=== PATIENT | male | born 1990 | race Caucasian/White ===

== ENCOUNTER 2021-08-16 15:07 | Inpatient (IN) | payer OTHER ==
[2021-08-16] MEDS ORDERED: ONDANSETRON *ODT* 4 MG TABLET SL PRN (16:08)
[2021-08-16] MEDS ORDERED: BISMUTH SUBSALICYLATE 524 MG/30 ML PO PRN (16:08)
[2021-08-16] MEDS ORDERED: MENTHOL/PHENOL 1 EACH UD MM PRN (16:08)
[2021-08-16] MEDS ORDERED: ACETAMINOPHEN 325 MG TABLET (FP) PO PRN ×2 (16:08)
[2021-08-16] MEDS ORDERED: IBUPROFEN 400 MG TABLET (FP) PO PRN (16:08)
[2021-08-16] MEDS ORDERED: MAGNESIUM CITRATE 300 ML BOTTLE PO PRN (16:08)
[2021-08-16] MEDS ORDERED: MAGNESIUM HYDROX 2400MG/30ML ORAL SUSPENSION 30 ML CUP PO PRN (16:08)
[2021-08-16] MEDS ORDERED: methaDONE HCL 10 MG TABLET (FOR DETOX USE ONLY) PO ONE (16:08)
[2021-08-16] MEDS ORDERED: MAG HYDROX/AL HYDROX/SIMETH 30 ML UNIT-DOSE CUP PO PRN (16:08)
[2021-08-16] MEDS ORDERED: cloNIDine HCL 0.1 MG TABLET PO PRN (16:08)
[2021-08-16 17:16] VITALS: BMI 24.3
[2021-08-16] MEDS: LORazepam 2 MG TABLET PO SCH ×2 (19:21→22:23)
[2021-08-16] MEDS: hydrOXYzine PAMOATE 25 MG CAPSULE (FP) PO SCH ×2 (19:22→22:24)
[2021-08-16] MEDS: NICOTINE 10 MG CARTRIDGE (INHALER) IH PRN (19:28)
[2021-08-16] MEDS: THIAMINE HCL 100 MG TABLET (FP) PO SCH (22:24)
[2021-08-16] MEDS: MELATONIN 5 MG TABLETS PO SCH (22:24)
[2021-08-17] MEDS: hydrOXYzine PAMOATE 25 MG CAPSULE (FP) PO SCH ×5 (05:38→22:28)
[2021-08-17] MEDS: LORazepam 2 MG TABLET PO SCH ×4 (05:38→22:27)
[2021-08-17] MEDS ORDERED: methaDONE HCL 10 MG TABLET (FOR DETOX USE ONLY) ONE (08:45)
[2021-08-17] MEDS: PRENATAL VITAMINS W/ FOLIC ACID TABLET (FP) PO SCH (10:18)
[2021-08-17 10:31] LABS: HEMATOCRIT 39.5 % (35.4-49); HEMOGLOBIN 13.2 GM/dL (11.7-16.9); MCH 30.9 pg (25.7-33.7); MCHC 33.4 g/dl (32.0-35.9); MEAN CELL VOLUME 92.3 fl (80-96); MEAN PLT VOLUME 7.7 fl (7.5-11.1); PLATELET COUNT 272 10^3/uL (134-434); RBC 4.28 M/mm3 (4.00-5.60); RDW 12.8 % (11.9-15.9); WHITE BLOOD COUNT 6.1 K/mm3 (4.0-10.0)
[2021-08-17 10:36] LABS: ALBUMIN 3.2 g/dl (3.4-5.0); CALCIUM 8.9 mg/dL (8.5-10.1)
[2021-08-17 10:37] LABS: BLOOD UREA NITROGEN 9.1 mg/dL (7-18)
[2021-08-17 10:41] LABS: BILIRUBIN,TOTAL 0.3 mg/dL (0.2-1)
[2021-08-17 10:42] LABS: CREATININE 0.9 mg/dL (0.55-1.3)
[2021-08-17 10:44] LABS: TOT PROT 6.2 g/dl (6.4-8.2)
[2021-08-17] MEDS: LORazepam 1 MG TABLET PO PRN ×2 (13:34→19:22)
[2021-08-17] MEDS: NICOTINE 10 MG CARTRIDGE (INHALER) IH PRN (17:38)
[2021-08-17] MEDS: THIAMINE HCL 100 MG TABLET (FP) PO SCH (22:28)
[2021-08-17] MEDS: MELATONIN 5 MG TABLETS PO SCH (22:28)
[2021-08-18] MEDS: LORazepam 1 MG TABLET PO SCH ×4 (05:51→22:09)
[2021-08-18] MEDS: hydrOXYzine PAMOATE 25 MG CAPSULE (FP) PO SCH ×5 (05:51→22:11)
[2021-08-18] MEDS ORDERED: methaDONE HCL 10 MG TABLET (FOR DETOX USE ONLY) PO ONE (10:00)
[2021-08-18] MEDS: PRENATAL VITAMINS W/ FOLIC ACID TABLET (FP) PO SCH (10:59)
[2021-08-18] MEDS: NICOTINE 10 MG CARTRIDGE (INHALER) IH PRN ×2 (17:30→22:12)
[2021-08-18] MEDS: THIAMINE HCL 100 MG TABLET (FP) PO SCH (22:10)
[2021-08-18] MEDS: METHOCARBAMOL 500 MG TABLET PO PRN (22:12)
[2021-08-18] MEDS: MELATONIN 5 MG TABLETS PO SCH (23:25)
[2021-08-19] MEDS ORDERED: LORazepam 0.5 MG TABLET PO PRN
[2021-08-19] MEDS: LORazepam 0.5 MG TABLET PO SCH ×4 (05:31→22:20)
[2021-08-19] MEDS: hydrOXYzine PAMOATE 25 MG CAPSULE (FP) PO SCH ×5 (05:31→22:23)
[2021-08-19] MEDS ORDERED: methaDONE HCL 10 MG TABLET (FOR DETOX USE ONLY) ONE (09:14)
[2021-08-19] MEDS: PRENATAL VITAMINS W/ FOLIC ACID TABLET (FP) PO SCH (10:27)
[2021-08-19] MEDS: NICOTINE 10 MG CARTRIDGE (INHALER) IH PRN ×3 (10:30→22:25)
[2021-08-19] MEDS: MELATONIN 5 MG TABLETS PO SCH (22:21)
[2021-08-19] MEDS: THIAMINE HCL 100 MG TABLET (FP) PO SCH (22:21)
[2021-08-20] MEDS ORDERED: LORazepam 0.5 MG TABLET PO ONE (05:00)
[2021-08-20] MEDS: NICOTINE 10 MG CARTRIDGE (INHALER) IH PRN ×4 (05:35→22:29)
[2021-08-20] MEDS: hydrOXYzine PAMOATE 25 MG CAPSULE (FP) PO SCH ×5 (07:16→22:28)
[2021-08-20] MEDS ORDERED: methaDONE HCL 10 MG TABLET (FOR DETOX USE ONLY) PO ONE (10:00)
[2021-08-20] MEDS: METHOCARBAMOL 500 MG TABLET PO PRN (10:39)
[2021-08-20] MEDS: PRENATAL VITAMINS W/ FOLIC ACID TABLET (FP) PO SCH (10:39)
[2021-08-20] MEDS: MELATONIN 5 MG TABLETS PO SCH (22:28)
[2021-08-20] MEDS: THIAMINE HCL 100 MG TABLET (FP) PO SCH (22:28)
[2021-08-21] MEDS: hydrOXYzine PAMOATE 25 MG CAPSULE (FP) PO SCH ×3 (05:03→15:15)
[2021-08-21] MEDS: NICOTINE 10 MG CARTRIDGE (INHALER) IH PRN (10:14)
[2021-08-21] MEDS: PRENATAL VITAMINS W/ FOLIC ACID TABLET (FP) PO SCH (10:14)
[2021-08-21 17:18] VITALS: BP 116/69; PULSE 57; TEMP 97.2
== END 2021-08-21 17:32 | disposition other institution (70) | DRG 773 ==
LOC: YASAS 15:07 → Y3N 18:10
PROVIDERS: ADMIT Allergy & Immunology; ATTEND Allergy & Immunology
PROC: HZ2ZZZZ Detoxification Services for Substance Abuse Treatment (ICD-10-PCS; principal; 2021-08-16)
DX: F11.23 Opioid dependence with withdrawal (principal); F10.230 Alcohol dependence with withdrawal, uncomplicated; F13.230 Sedative, hypnotic or anxiolytic dependence with withdrawal, uncomplicated; F15.10 Other stimulant abuse, uncomplicated; F17.210 Nicotine dependence, cigarettes, uncomplicated; E46 Unspecified protein-calorie malnutrition; Z68.24 Body mass index [BMI] 24.0-24.9, adult
CPT/HCPCS: 36415; 80053; 85027; 86780; 93005; 93010; C9803; J0735; U0003; U0005

== ENCOUNTER 2021-08-21 17:46 | Inpatient (IN) | payer OTHER ==
[2021-08-21] MEDS ORDERED: MAGNESIUM CITRATE 300 ML BOTTLE PO PRN (18:11)
[2021-08-21] MEDS ORDERED: LOPERAMIDE HCL 2 MG CAPSULE PO PRN (18:11)
[2021-08-21] MEDS ORDERED: ACETAMINOPHEN 325 MG TABLET (FP) PO PRN (18:11)
[2021-08-21] MEDS ORDERED: MAGNESIUM HYDROX 2400MG/30ML ORAL SUSPENSION 30 ML CUP PO PRN (18:11)
[2021-08-21] MEDS ORDERED: MAG HYDROX/AL HYDROX/SIMETH 30 ML UNIT-DOSE CUP PO PRN (18:11)
[2021-08-21] MEDS ORDERED: MENTHOL/PHENOL 1 EACH UD MM PRN (18:11)
[2021-08-21] MEDS ORDERED: IBUPROFEN 400 MG TABLET (FP) PO PRN (18:11)
[2021-08-21] MEDS ORDERED: P-EPHED 60MG/TRIPROLIDI 2.5MG TABLET PO PRN (18:11)
[2021-08-21] MEDS ORDERED: guaiFENesin 200 MG/10 ML 10 ML UNIT-DOSE CUPS PO PRN (18:11)
[2021-08-21] MEDS: THIAMINE HCL 100 MG TABLET (FP) PO SCH (21:08)
[2021-08-21] MEDS: MELATONIN 5 MG TABLETS PO PRN (21:08)
[2021-08-21] MEDS ORDERED: NICOTINE POLACRILEX 2 MG GUM BUC PRN (21:34)
[2021-08-22] MEDS: PRENATAL VITAMINS W/ FOLIC ACID TABLET (FP) PO SCH (10:35)
[2021-08-22] MEDS: THIAMINE HCL 100 MG TABLET (FP) PO SCH (21:18)
[2021-08-22] MEDS: hydrOXYzine PAMOATE 25 MG CAPSULE (FP) PO PRN (21:18)
[2021-08-22] MEDS: MELATONIN 5 MG TABLETS PO PRN (21:18)
[2021-08-23] MEDS: hydrOXYzine PAMOATE 25 MG CAPSULE (FP) PO PRN (10:10)
[2021-08-23] MEDS: PRENATAL VITAMINS W/ FOLIC ACID TABLET (FP) PO SCH (10:10)
[2021-08-23] MEDS ORDERED: ALBUTEROL SO4 HFA INHALER IH PRN (15:52)
[2021-08-23] MEDS: MELATONIN 5 MG TABLETS PO PRN (21:35)
[2021-08-23] MEDS: THIAMINE HCL 100 MG TABLET (FP) PO SCH (22:05)
[2021-08-24] MEDS: PRENATAL VITAMINS W/ FOLIC ACID TABLET (FP) PO SCH (10:15)
[2021-08-24] MEDS: THIAMINE HCL 100 MG TABLET (FP) PO SCH (21:25)
[2021-08-24] MEDS: MELATONIN 5 MG TABLETS PO PRN (21:26)
[2021-08-24] MEDS: hydrOXYzine PAMOATE 25 MG CAPSULE (FP) PO PRN (21:26)
[2021-08-25] MEDS: PRENATAL VITAMINS W/ FOLIC ACID TABLET (FP) PO SCH (10:34)
[2021-08-25] MEDS: MELATONIN 5 MG TABLETS PO PRN (21:36)
[2021-08-25] MEDS: THIAMINE HCL 100 MG TABLET (FP) PO SCH (21:37)
[2021-08-25] MEDS: hydrOXYzine PAMOATE 25 MG CAPSULE (FP) PO PRN (21:37)
[2021-08-26 06:43] VITALS: BP 119/77; PULSE 82; TEMP 97.1
[2021-08-26] MEDS: PRENATAL VITAMINS W/ FOLIC ACID TABLET (FP) PO SCH (09:24)
== END 2021-08-26 14:05 | disposition home or self-care (01) | DRG 772 ==
LOC: YASAS 17:46 → Y3W 17:47 → Y3E 08-23 15:03
PROVIDERS: ADMIT Allergy & Immunology; ATTEND Allergy & Immunology
PROC: HZ42ZZZ Group Counseling for Substance Abuse Treatment, Cognitive-Behavioral (ICD-10-PCS; principal; 2021-08-21)
DX: F11.20 Opioid dependence, uncomplicated (principal); F10.20 Alcohol dependence, uncomplicated; F13.20 Sedative, hypnotic or anxiolytic dependence, uncomplicated; F17.210 Nicotine dependence, cigarettes, uncomplicated
CPT/HCPCS: C9803; U0003; U0005

== ENCOUNTER 2021-11-28 16:03 | Inpatient (IN) | payer OTHER ==
[2021-11-28] MEDS ORDERED: MAGNESIUM CITRATE 300 ML BOTTLE PO PRN (21:30)
[2021-11-28] MEDS ORDERED: BENZOCAINE/MENTHOL (CHLORASEPTIC ) LOZENGE MM PRN (21:30)
[2021-11-28] MEDS ORDERED: DICYCLOMINE HCL 10 MG CAPSULE PO PRN (21:30)
[2021-11-28] MEDS ORDERED: IBUPROFEN 400 MG TABLET (FP) PO PRN (21:30)
[2021-11-28] MEDS ORDERED: MAG HYDROX/AL HYDROX/SIMETH 30 ML UNIT-DOSE CUP PO PRN (21:30)
[2021-11-28] MEDS ORDERED: MAGNESIUM HYDROX 2400MG/30ML ORAL SUSPENSION 30 ML CUP PO PRN (21:30)
[2021-11-28] MEDS ORDERED: BISMUTH SUBSALICYLATE 524 MG/30 ML PO PRN (21:30)
[2021-11-28] MEDS ORDERED: LOPERAMIDE HCL 2 MG CAPSULE PO PRN (21:30)
[2021-11-28] MEDS ORDERED: ONDANSETRON *ODT* 4 MG TABLET SL PRN (21:30)
[2021-11-28] MEDS ORDERED: ACETAMINOPHEN 325 MG TABLET (FP) PO PRN ×2 (21:30)
[2021-11-28] MEDS ORDERED: methaDONE HCL 10 MG TABLET (FOR DETOX USE ONLY) PO ONE (22:03)
[2021-11-28] MEDS ORDERED: chlordiazePOXIDE HCL 25 MG CAPSULE PO PRN (22:04)
[2021-11-28 23:16] VITALS: BMI 25.1
[2021-11-28] MEDS: chlordiazePOXIDE HCL 25 MG CAPSULE PO SCH (23:47)
[2021-11-28] MEDS: THIAMINE HCL 100 MG TABLET (FP) PO SCH (23:59)
[2021-11-29] MEDS: chlordiazePOXIDE HCL 25 MG CAPSULE PO SCH ×4 (05:05→22:57)
[2021-11-29] MEDS ORDERED: methaDONE HCL 10 MG TABLET (FOR DETOX USE ONLY) ONE (08:19)
[2021-11-29] MEDS: PRENATAL VITAMINS W/ FOLIC ACID TABLET (FP) PO SCH (10:25)
[2021-11-29] MEDS: NICOTINE 10 MG CARTRIDGE (INHALER) IH PRN ×2 (10:29→18:10)
[2021-11-29] MEDS: cloNIDine HCL 0.1 MG TABLET PO PRN (12:31)
[2021-11-29 13:57] LABS: HEMATOCRIT 38.9 % (35.4-49); MCH 30.5 pg (25.7-33.7); MCHC 33.5 g/dl (32.0-35.9); MEAN CELL VOLUME 91.2 fl (80-96); MEAN PLT VOLUME 7.6 fl (7.5-11.1); PLATELET COUNT 244 10^3/uL (134-434); RBC 4.27 M/mm3 (4.00-5.60); RDW 13.5 % (11.9-15.9); WHITE BLOOD COUNT 6.7 K/mm3 (4.0-10.0)
[2021-11-29 14:20] LABS: CALCIUM 9.3 mg/dL (8.5-10.1)
[2021-11-29 14:21] LABS: ALBUMIN 3.3 g/dl (3.4-5.0); BLOOD UREA NITROGEN 16.6 mg/dL (7-18)
[2021-11-29 14:25] LABS: BILIRUBIN,TOTAL 0.2 mg/dL (0.2-1); TOT PROT 6.8 g/dl (6.4-8.2)
[2021-11-29] MEDS: hydrOXYzine PAMOATE 25 MG CAPSULE (FP) PO PRN ×2 (18:07→23:00)
[2021-11-29] MEDS: MELATONIN 5 MG TABLETS PO PRN (22:59)
[2021-11-29] MEDS: THIAMINE HCL 100 MG TABLET (FP) PO SCH (22:59)
[2021-11-30] MEDS: chlordiazePOXIDE HCL 25 MG CAPSULE PO SCH ×4 (05:25→23:09)
[2021-11-30] MEDS: hydrOXYzine PAMOATE 25 MG CAPSULE (FP) PO PRN (05:26)
[2021-11-30] MEDS ORDERED: methaDONE HCL 10 MG TABLET (FOR DETOX USE ONLY) PO ONE (10:00)
[2021-11-30] MEDS: PRENATAL VITAMINS W/ FOLIC ACID TABLET (FP) PO SCH (10:32)
[2021-11-30] MEDS: METHOCARBAMOL 500 MG TABLET PO PRN (10:32)
[2021-11-30] MEDS: NICOTINE 10 MG CARTRIDGE (INHALER) IH PRN ×2 (12:40→18:01)
[2021-11-30] MEDS: cloNIDine HCL 0.1 MG TABLET PO PRN ×2 (12:43→22:30)
[2021-11-30] MEDS: THIAMINE HCL 100 MG TABLET (FP) PO SCH (22:30)
[2021-11-30] MEDS: MELATONIN 5 MG TABLETS PO PRN (22:30)
[2021-12-01] MEDS ORDERED: chlordiazePOXIDE HCL 10 MG CAPSULE PO PRN
[2021-12-01] MEDS: chlordiazePOXIDE HCL 10 MG CAPSULE PO SCH ×4 (05:31→22:49)
[2021-12-01] MEDS: hydrOXYzine PAMOATE 25 MG CAPSULE (FP) PO PRN ×3 (05:32→22:50)
[2021-12-01] MEDS ORDERED: methaDONE HCL 10 MG TABLET (FOR DETOX USE ONLY) ONE (08:31)
[2021-12-01] MEDS: PRENATAL VITAMINS W/ FOLIC ACID TABLET (FP) PO SCH (10:22)
[2021-12-01] MEDS: NICOTINE 10 MG CARTRIDGE (INHALER) IH PRN ×2 (10:24→18:12)
[2021-12-01] MEDS: METHOCARBAMOL 500 MG TABLET PO PRN (18:13)
[2021-12-01] MEDS: MELATONIN 5 MG TABLETS PO PRN (22:49)
[2021-12-01] MEDS: THIAMINE HCL 100 MG TABLET (FP) PO SCH (22:49)
[2021-12-02] MEDS ORDERED: chlordiazePOXIDE HCL 10 MG CAPSULE PO SCH (05:00)
[2021-12-02 09:22] VITALS: BP 117/62; PULSE 58; TEMP 97.4
[2021-12-02] MEDS ORDERED: methaDONE HCL 10 MG TABLET (FOR DETOX USE ONLY) PO ONE (10:00)
[2021-12-02] MEDS: PRENATAL VITAMINS W/ FOLIC ACID TABLET (FP) PO SCH (10:24)
[2021-12-02] MEDS: hydrOXYzine PAMOATE 25 MG CAPSULE (FP) PO PRN (10:24)
[2021-12-02] MEDS: NICOTINE 10 MG CARTRIDGE (INHALER) IH PRN (10:37)
[2021-12-03] MEDS ORDERED: chlordiazePOXIDE HCL 10 MG CAPSULE PO ONE (05:00)
== END 2021-12-02 12:03 | disposition home or self-care (01) | DRG 773 ==
LOC: YASAS 16:03 → Y3N 22:48
PROVIDERS: ADMIT Allergy & Immunology; ATTEND Surgery
PROC: HZ2ZZZZ Detoxification Services for Substance Abuse Treatment (ICD-10-PCS; principal; 2021-11-28)
DX: F11.23 Opioid dependence with withdrawal (principal); F10.230 Alcohol dependence with withdrawal, uncomplicated; F13.230 Sedative, hypnotic or anxiolytic dependence with withdrawal, uncomplicated; F17.210 Nicotine dependence, cigarettes, uncomplicated; Z28.310 Unvaccinated for COVID-19
CPT/HCPCS: 36415; 80053; 85027; 86780; C9803-CS; J0735; U0003; U0005